=== PATIENT | male | born 1975 | race Caucasian/White ===

== ENCOUNTER 2022-07-17 02:22 | Observation (INO) ==
[2022-07-17] MEDS ORDERED: ONDANSETRON INJ 2 MG/ML 2 ML VIAL IV STA (02:36)
[2022-07-17] MEDS ORDERED: MoRPHine SULFATE 4 MG/ML 1 ML CARP\\VIAL IV STA ×2 (02:36→05:26)
[2022-07-17] MEDS ORDERED: SODIUM CHLORIDE 0.9% 1000ML 1,000 ML IV STA (02:36)
--- NOTE | 2022-07-17 02:43 | Emergency Department Note ---
History of Present Illness General Chief complaint: Abdominal Pain Stated complaint: ABDOMINAL PAIN Time Seen by Provider: 07/17/22 02:25 History of Present Illness Maximum Pain Intensity: 9 This 47-year-old male presents to the ER with spouse for severe epigastric pain that radiates to his back. Pain has gotten worse throughout the day. No history of similar symptoms in the past. Patient does not routinely see the doctor. Patient denies chest pain, dyspnea, fevers, vomiting, diarrhea, flulike illness. No prior surgeries. Patient denies hematemesis or black or tarry stool. No history of GI bleeding in the past. Home Medications Medication Instructions Recorded Confirmed Type No Known Home Medications 07/17/22 07/17/22 History Allergies Allergy/AdvReac Type Severity Reaction Status Date / Time No Known Allergies Allergy Mild Verified 07/17/22 02:54 Past Med/Surg History Medical History (Updated 07/17/22 @ 04:52 by Saniya Dale PA-C) No pertinent past medical history Family History Other No pertinent family history in first degree relatives Social History Smoking Status: Never smoker Preferred Language: Russian Feels Safe at Home: Yes Review of Systems A total of 10 systems reviewed and were otherwise negative Physical Exam Vital Signs Vital Signs - 24 hr 07/17/22 02:27 07/17/22 03:38 07/17/22 04:22 Temperature 37.2 C Temperature Source Oral Pulse Rate 64 56 L Respiratory Rate 18 20 Respiratory Effort / Characteristics Non-Labored Spontaneous Non-Labored Respiratory Depth Normal Respiratory Pattern Regular Blood Pressure 129/83 Blood Pressure Mean 98 Pulse Oximetry 99 100 Oxygen Delivery Method Room Air Room Air Sepsis Recent Fever Within 48 Hours No Sepsis New/Unexplained Change in Mental Status No Sepsis Action Taken by Nursing No Action Required 07/17/22 04:05 07/17/22 04:15 Temperature Temperature Source Pulse Rate 67 Respiratory Rate 17 Respiratory Effort / Characteristics Respiratory Depth Respiratory Pattern Blood Pressure 126/85 132/84 Blood Pressure Mean 98 100 Pulse Oximetry 93 Oxygen Delivery Method Sepsis Recent Fever Within 48 Hours Sepsis New/Unexplained Change in Mental Status Sepsis Action Taken by Nursing VITALS: Vitals are noted on the nurse's note and reviewed by myself. Vital signs stable. GENERAL: White male who appears in pain with spouse present, in no acute distress, nondiaphoretic, well-developed well-nourished. SKIN: The skin was without rashes, erythema, edema, or bruising. There is no tenting of the skin. Capillary reflex less than 2 seconds. HEAD: Normocephalic atraumatic. EARS: External auditory canals clear EYES: Pupils equal round and reactive to light and accommodation. Conjunctivae without injection, sclerae without icterus. Extraocular movements intact. NOSE: Patent, turbinates without inflammation or discharge. MOUTH: Mucous membranes moist. Pharynx without erythema or exudate. Uvula midline. Airway patent. Tongue does not deviate. NECK: Supple without nuchal rigidity. No lymphadenopathy. No thyromegaly. Cervical spine is nontender. No JVD. HEART: Regular rate and rhythm LUNGS: Clear to auscultation bilaterally without wheezes, rales or rhonchi. No retractions or accessory muscle use. ABDOMEN: Positive bowel sounds x 4. Normal tympanic percussion. Soft, tender epigastric region, without masses or organomegaly. Alvarenga sign negative. No guarding or rebound tenderness. No CVA tenderness Rectal exam: Brown stool guaiac negative. [employer] present. MUSCULOSKELETAL: No muscle atrophy, erythema, or edema noted. NEURO: Patient was alert and oriented to person place and time. Normal sensation to light and sharp touch. No focal neurological deficits. Course Administered Medications Discontinued Medications Sodium Chloride (Nss 1000ml) 1,000 mls @ 999 mls/hr IV .Q1H1M STA Stop: 07/17/22 03:36 Last Infusion: 07/17/22 04:24 Dose: 0 mls/hr Documented By: Admin: 07/17/22 03:09 Dose: 999 mls/hr Documented By: CURT Famotidine (Pepcid 20mg Iv Push) 20 mg in 5 mls @ 2.5 mls/min IV NOW STA Stop: 07/17/22 04:24 Last Admin: 07/17/22 04:34 Dose: 2.5 mls/min Documented By: HOMER Ioversol (Optiray 320 500ml) 113 ml IV ONCE ONE Stop: 07/17/22 03:41 Last Admin: 07/17/22 03:40 Dose: 113 ml Documented By: PAT Morphine Sulfate (Morphine Sulfate 4 Mg/Ml 1 Ml Carp\Vial) 4 mg IV NOW STA Stop: 07/17/22 02:37 Last Admin: 07/17/22 03:09 Dose: 4 mg Documented By: CURT Ondansetron HCl (Ondansetron Inj 2 Mg/Ml 2 Ml Vial) 4 mg IV NOW STA Stop: 07/17/22 02:37 Last Admin: 07/17/22 03:09 Dose: 4 mg Documented By: CURT Medical Decision Making Medical Records Attestation: I reviewed the patient's medical records. Home Medications Current Medication List: was personally reviewed by me Laboratory Data Attestation: I reviewed the patient's lab results. 07/17/22 02:49 07/17/22 02:49 Lab Results 07/17/22 07/17/22 07/17/22 Range/Units 02:49 02:49 02:57 WBC 6.63 (4.8-10.8) K/ul RBC 4.09 L (4.70-6.10) M/uL Hgb 13.1 L (14.0-18.0) g/dl POC Hgb 13.3 L (14.0-18.0) g/dl Hct 36.7 L (42.0-52.0) % POC Hct 39 L (42-52) % MCV 89.7 (80.0-100.0) fL MCH 32.0 (25.0-34.0) pg MCHC 35.7 (32.0-36.0) g/dL RDW Std Deviation 38.1 (36.4-46.3) fL RDW Coeff of Charleen 11.8 (11.5-14.5) % Plt Count 258 (130-400) K/uL MPV 9.8 (9.4-12.4) fL Immature Gran % (Auto) 0.0 % Neut % (Auto) 71.2 % Lymph % (Auto) 17.5 % Callahan % (Auto) 9.7 % Eos % (Auto) 0.8 % Baso % (Auto) 0.8 % Neut # (Auto) 4.73 (1.40-6.50) K/uL Lymph # (Auto) 1.16 L (1.2-3.4) K/uL Callahan # (Auto) 0.64 H (0.11-0.59) K/uL Eos # (Auto) 0.05 (0-0.50) K/uL Baso # (Auto) 0.05 (0-0.2) K/uL Immature Gran # (Auto) 0.00 L (0.01-0.20) K/uL POC Sodium 136 (135-144) mmol/L Sodium 136 (136-145) mmol/L POC Potassium 3.9 (3.3-5.0) mmol/L Potassium 3.9 (3.5-5.1) mmol/L POC Chloride 101 (101-112) mmol/L Chloride 101 (98-107) mmol/L Carbon Dioxide 25 (21-32) mmol/L POC Total CO2 25 (24-31) mmol/L Anion Gap 10 (3-11) POC Anion Gap 15.0 L (16-25) mmol/L POC BUN 8 (7-18) mg/dl BUN 9 (6-23) mg/dl Creatinine 0.84 (0.6-1.4) mg/dl POC Creatinine 0.8 (0.6-1.3) mg/dl Est Cr Clr Drug Dosing 113.5 ml/min Est GFR ( Amer) 121.7 ml/min Est GFR (Non-Af Amer) 105.0 ml/min BUN/Creatinine Ratio 10.7 (10-20) Glucose 91 (70-99(Fasting)) mg/dl POC Glucose (other) 93 (70-99) mg/dl Calcium 9.0 (8.5-10.1) mg/dl POC Ioniz Calcium Saba 1.11 L (1.12-1.32) mmol/l Total Bilirubin 0.7 (0.2-1.0) mg/dl AST 23 (13-39) U/L ALT 29 (7-52) U/L Alkaline Phosphatase 76 (34-104) U/L Troponin I High Sens 4.6 (0-20) pg/ml Total Protein 7.3 (6.0-8.3) gm/dl Albumin 4.5 (3.4-5.0) gm/dl Globulin 2.8 (2.5-4.0) gm/dl Albumin/Globulin Ratio 1.6 (0.9-2) Lipase 13 (11-82) U/L Imaging Data Attestation: I personally reviewed and interpreted this imaging study as follows: MDM Narrative Prior records/ancillary studies reviewed. Triage Nursing notes reviewed. Additional history obtained from family. The patient's history was concerning for epigastric pain. Differential diagnosis: Etiologies such as cardiac ischemia, gallbladder, pancreatitis, aortic dissection, pulmonary embolism, pneumonia, pneumothorax, musculoskeletal, infections, pericarditis, myocarditis, esophageal rupture, gastrointestinal, as well as others were entertained. Physical examination: As above. ER treatment provided: An order was placed for continuous cardiac monitoring. The monitor shows a rate of 60-100 with a sinus rhythm per my interpretation. Morphine, Zofran, IV fluids, Protonix, Pepcid On reassessment the patient felt better. Diagnostic interpretation by me: The electrocardiogram was negative for pathologic change. Order for chest pain EKG: Normal sinus, normal intervals, left axis deviation, no acute ST-T wave changes. Impression normal sinus rhythm with a left axis deviation interpreted by myself I think arrhythmia is unlikely. EKG shows normal sinus rhythm with no interval abnormalities such as QT prolongation or WPW. There are no findings to suggest Brugada syndrome. Cardiac monitoring in the emergency department reveals no tachycardic or bradycardic dysrhythmia. Hypertrophic cardiomyopathy was considered but there are no clear historical elements pointing toward this. EKG is not suggestive. The QRS voltage is not extremely large and there are no suggestive Q waves. The labs Independently Interpreted by myself revealed negative troponin. Negative Hemoccult Mild anemia, stable creatinine Imaging studies: Chest x-ray with no acute consolidation, pneumothorax or free air per my interpretation CTA CHEST: No pulmonary embolus. No aortic aneurysm or dissection. The lungs are clear. Heart size is normal. No pathologically enlarged lymph nodes. No fracture. CTA ABDOMEN & PELVIS W/WO Contrast: No significant stenosis, occlusion, aneurysm or dissection. Question a small amount of active GI bleed of the small bowel in the pelvis axial series 9 images 322 through 333. There is a possible second focus in the right lower quadrant axial series 9 images 251 through 254. Clinical correlation is recommended. The solid organs are within normal limits. No bowel obstruction. No fracture. Normal appendix. Radiologist: Salma Argueta MD Study ready at 03:39 and initial results transmitted at 04:30 HEART SCORE: Hx: high/mod/low suspicion: 0 ECG: ST depression/nonspecific changes/normal: 0 Age: Greater than 65/45-64/less than 45: 1 Risk factors: (Hypertension, hyperlipidemia, diabetes, coronary disease, tobacco use, cocaine use): 0 Troponin: Greater than 2 times normal limits/1-2 times normal limits/normal: 0 Total: 1 Consultation: A consultation was placed with the hospitalist. The case was discussed and diagnostics were reviewed. The patient was evaluated in the ER for further treatment. Exam and history seem consistent with acute abdominal pain with concerns for possible acute GI bleed. Patient was not vomiting blood and was negative for Hemoccult. No history of GI bleeding in the past. Labs and diagnostics are independently interpreted by myself. Medicine was consulted and the case was discussed. Patient will be admitted to the medical service. Stable H&H. Patient was hemodynamically stable. By the evaluation outlined above emergent etiologies such as cardiac ischemia, aortic dissection, pulmonary embolism, pneumonia, pneumothorax, infections, pericarditis, myocarditis, as well as others were deemed relatively unlikely. The pt informed about the findings as listed above. All questions were answered and pleased with the treatment. The chart was completed utilizing [employer] voice recognition software. Grammatical errors, random word insertions, pronoun errors, and incomplete sentences are an occassional consequence of this system due to software limitations, ambient noise, and hardware issues. Any formal questions or concerns about the content, text, or information contained within the body of this dictation should be directly addressed to the physician gift shop assistant for clarification. Impression & Plan Abdominal pain, acute, epigastric Discharge Plan Visit Data Chief Complaint: Abdominal Pain Stated Complaint: ABDOMINAL PAIN ED Provider: Gustavo Lorenzana ED Midlevel Provider: Saniya Dale Discharge Problem: Abdominal pain, acute, epigastric Patient Disposition: Admitted As Inpatient Condition: Good Forms Stand Alone Forms: [employer] Prescriptions Prescriptions: No Action No Known Home Medications Referrals Referrals: PCP,NO [Primary Care Provider] -
[2022-07-17 02:58] LABS: Basophils # (auto) 0.05 K/uL (0-0.2); Basophils % (auto) 0.8 %; Eosinophils # (auto) 0.05 K/uL (0-0.50); Eosinophils % (auto) 0.8 %; Hematocrit (blood only) 36.7 % (42.0-52.0); Hemoglobin 13.1 g/dl (14.0-18.0); Lymphocytes # (auto) 1.16 K/uL (1.2-3.4); Lymphocytes % (auto) 17.5 %; Mean Corpuscular Hgb Conc 35.7 g/dL (32.0-36.0); Mean Corpuscular Volume 89.7 fL (80.0-100.0); Mean Platelet Volume 9.8 fL (9.4-12.4); Monocytes # (auto) 0.64 K/uL (0.11-0.59); Monocytes % (auto) 9.7 %; Neutrophils # (auto) 4.73 K/uL (1.40-6.50); Neutrophils % (auto) 71.2 %; Platelet Count 258 K/uL (130-400); RDW Coefficient of Variation 11.8 % (11.5-14.5); RDW Standard Deviation 38.1 fL (36.4-46.3); Red Blood Count 4.09 M/uL (4.70-6.10); White Blood Count 6.63 K/ul (4.8-10.8)
[2022-07-17 03:11] LABS: iSTAT Creatinine 0.8 mg/dl (0.6-1.3); iSTAT Hemoglobin 13.3 g/dl (14.0-18.0); iSTAT Ionized Calcium 1.11 mmol/l (1.12-1.32); iSTAT Potassium 3.9 mmol/L (3.3-5.0)
[2022-07-17 03:23] LABS: Albumin Globulin Ratio 1.6 (0.9-2); Albumin Level 4.5 gm/dl (3.4-5.0); BUN Creatinine Ratio 10.7 (10-20); Bilirubin,Total 0.7 mg/dl (0.2-1.0); Creatinine Clr Calc Pharmacy 113.5 ml/min; Est GFR (African American) 121.7 ml/min; Globulin 2.8 gm/dl (2.5-4.0); Potassium 3.9 mmol/L (3.5-5.1); Total Protein 7.3 gm/dl (6.0-8.3)
[2022-07-17 03:30] LABS: Troponin I High Sensitivity 4.6 pg/ml (0-20)
[2022-07-17] MEDS ORDERED: OPTIRAY 320 500ml IV ONE (03:40)
[2022-07-17] MEDS ORDERED: FAMOTIDINE 20MG IV PUSH 20 MG/5 ML SYR IV STA (04:23)
[2022-07-17] MEDS ORDERED: PANTOprazole 80 MG in DEXTROSE 5% 100 ML IV STA (04:31)
--- NOTE | 2022-07-17 05:06 | History & Physical Report ---
Date of Service July 17, 2022 Assessment & Plan (1) Abdominal pain, acute, epigastric: Plan: Possible GI bleed on initial CT read Patient predisposed by alcohol abuse. Patient currently hemodynamically stable OBS Medical telemetry IV PPI until UGIB ruled out Follow official CT abdomen pelvis result GI consult if GI bleed on CT read N.p.o. Serial H&H, transfuse PRBC if hemoglobin less than 7 and or for symptomatic anemia DT precautions, LAKESHA S if with signs of alcohol withdrawal DVT prophylaxis. SCDs Re: Possible GI bleed Full code Patient fiance requesting updates from providers. Ms. Madina Rich, contact #[phone]. Text document was generated using [employer] voice recognition software. It may contain grammatical or spelling errors. Kindly contact undersigned for clarification of any documentation item in question. History of Present Illness Chief Complaint: Abdominal pain Primary Care Provider: NO PCP History obtained from patient, family, and records. Medical history significant for chronic anemia (baseline hemoglobin of 13 ), alcohol abuse. Patient woke up yesterday morning with sharp epigastric pain going to the back. Abdominal pain getting worse throughout the day. Somewhat worse in the supine position. Bilious emesis without black/bloody stools. No fever, no chills. No chest pain, no SOB. Patient denies inordinate OTC NSAID intake. Transient episodes for some time now which patient attributes to heavy food and EtOH intake. Patient consulted ER for evaluation. IV Protonix and famotidine administered for possible GI bleed on initial CT read. Medical History as above Surgical History : Right forearm surgery Family History : Hypertension Personal/Social history : Non-smoker, alcohol abuse, [employer] employment Allergies Allergy/AdvReac Type Severity Reaction Status Date / Time No Known Allergies Allergy Mild Verified 07/17/22 02:54 Home Medications Medication Instructions Recorded Confirmed Type No Known Home Medications 07/17/22 07/17/22 History Past Med/Surg History Medical History No pertinent past medical history Family History Other No pertinent family history in first degree relatives Social History Smoking Status: Never smoker Preferred Language: Tanzanian Feels Safe at Home: Yes Review of Systems Review of Systems: As per HPI, all other systems reviewed and negative Physical Exam 2 Physical Exam: GENERAL: Comfortable, pleasant, no respiratory distress SKIN: Pallor, warm HEENT: Pale palpebral conjunctivae, no ptosis, dry buccal mucosa NECK : Supple, no tenderness CHEST : CTA, no tenderness HEART : RRR, no obvious murmurs ABDOMEN: Some distention, epigastric tenderness EXTREMITIES : No LE swelling/tenderness, no other conspicuous deformities noted NEUROLOGIC : Coherent, no facial asymmetry, no other gross focality Results & Data Results & Data ([facility]) Vital Signs (Past 12 Hours) Vital Signs Temp Pulse Resp BP Pulse Ox O2 Del Method 07/17/22 04:15 132/84 07/17/22 04:05 67 17 126/85 93 07/17/22 03:38 56 L 20 100 Room Air 07/17/22 02:27 37.2 C 64 18 129/83 99 Room Air Laboratory Results Laboratory Results WBC 6.63 K/ul (4.8-10.8) 07/17/22 02:49 RBC 4.09 M/uL (4.70-6.10) L 07/17/22 02:49 Hgb 13.1 g/dl (14.0-18.0) L 07/17/22 02:49 POC Hgb 13.3 g/dl (14.0-18.0) L 07/17/22 02:57 Hct 36.7 % (42.0-52.0) L 07/17/22 02:49 POC Hct 39 % (42-52) L 07/17/22 02:57 MCV 89.7 fL (80.0-100.0) 07/17/22 02:49 MCH 32.0 pg (25.0-34.0) 07/17/22 02:49 MCHC 35.7 g/dL (32.0-36.0) 07/17/22 02:49 RDW Std Deviation 38.1 fL (36.4-46.3) 07/17/22 02:49 RDW Coeff of Charleen 11.8 % (11.5-14.5) 07/17/22 02:49 Plt Count 258 K/uL (130-400) 07/17/22 02:49 MPV 9.8 fL (9.4-12.4) 07/17/22 02:49 Immature Gran % (Auto) 0.0 % 07/17/22 02:49 Neut % (Auto) 71.2 % 07/17/22 02:49 Lymph % (Auto) 17.5 % 07/17/22 02:49 Forrest % (Auto) 9.7 % 07/17/22 02:49 Eos % (Auto) 0.8 % 07/17/22 02:49 Baso % (Auto) 0.8 % 07/17/22 02:49 Neut # (Auto) 4.73 K/uL (1.40-6.50) 07/17/22 02:49 Lymph # (Auto) 1.16 K/uL (1.2-3.4) L 07/17/22 02:49 Forrest # (Auto) 0.64 K/uL (0.11-0.59) H 07/17/22 02:49 Eos # (Auto) 0.05 K/uL (0-0.50) 07/17/22 02:49 Baso # (Auto) 0.05 K/uL (0-0.2) 07/17/22 02:49 Immature Gran # (Auto) 0.00 K/uL (0.01-0.20) L 07/17/22 02:49 POC Sodium 136 mmol/L (135-144) 07/17/22 02:57 Sodium 136 mmol/L (136-145) 07/17/22 02:49 POC Potassium 3.9 mmol/L (3.3-5.0) 07/17/22 02:57 Potassium 3.9 mmol/L (3.5-5.1) 07/17/22 02:49 POC Chloride 101 mmol/L (101-112) 07/17/22 02:57 Chloride 101 mmol/L (98-107) 07/17/22 02:49 Carbon Dioxide 25 mmol/L (21-32) 07/17/22 02:49 POC Total CO2 25 mmol/L (24-31) 07/17/22 02:57 Anion Gap 10 (3-11) 07/17/22 02:49 POC Anion Gap 15.0 mmol/L (16-25) L 07/17/22 02:57 POC BUN 8 mg/dl (7-18) 07/17/22 02:57 BUN 9 mg/dl (6-23) 07/17/22 02:49 Creatinine 0.84 mg/dl (0.6-1.4) 07/17/22 02:49 POC Creatinine 0.8 mg/dl (0.6-1.3) 07/17/22 02:57 Est Cr Clr Drug Dosing 113.5 ml/min 07/17/22 02:49 Est GFR ( Amer) 121.7 ml/min 07/17/22 02:49 Est GFR (Non-Af Amer) 105.0 ml/min 07/17/22 02:49 BUN/Creatinine Ratio 10.7 (10-20) 07/17/22 02:49 Glucose 91 mg/dl (70-99(Fasting)) 07/17/22 02:49 POC Glucose (other) 93 mg/dl (70-99) 07/17/22 02:57 Calcium 9.0 mg/dl (8.5-10.1) 07/17/22 02:49 POC Ioniz Calcium Saba 1.11 mmol/l (1.12-1.32) L 07/17/22 02:57 Total Bilirubin 0.7 mg/dl (0.2-1.0) 07/17/22 02:49 AST 23 U/L (13-39) 07/17/22 02:49 ALT 29 U/L (7-52) 07/17/22 02:49 Alkaline Phosphatase 76 U/L (34-104) 07/17/22 02:49 Troponin I High Sens 4.6 pg/ml (0-20) 07/17/22 02:49 Total Protein 7.3 gm/dl (6.0-8.3) 07/17/22 02:49 Albumin 4.5 gm/dl (3.4-5.0) 07/17/22 02:49 Globulin 2.8 gm/dl (2.5-4.0) 07/17/22 02:49 Albumin/Globulin Ratio 1.6 (0.9-2) 07/17/22 02:49 Lipase 13 U/L (11-82) 07/17/22 02:49 SARS-CoV-2, RNA, NAAT NEGATIVE (NEGATIVE) 07/17/22 04:41 Diagnostic Findings CTA CHEST initial read: No pulmonary embolus. No aortic aneurysm or dissection. The lungs are clear. Heart size is normal. No pathologically enlarged lymph nodes. No fracture. CTA ABDOMEN & PELVIS W/WO Contrast initial read: : No significant stenosis, occlusion, aneurysm or dissection. Question a small amount of active GI bleed of the small bowel in the pelvis axial series 9 images 322 through 333. There is a possible second focus in the right lower quadrant axial series 9 images 251 through 254. Clinical correlation is recommended. The solid organs are within normal limits. No bowel obstruction. No fracture. Normal appendix EKG as per my interpretation : Rate 60, LAD, LAFB, no ischemia
[2022-07-17] MEDS ORDERED: LACTATED RINGER'S 1,000 ML IV STA (05:12)
[2022-07-17] MEDS ORDERED: LORazepam 2 MG/1 ML VIAL IV PRN (05:35)
[2022-07-17] MEDS ORDERED: MoRPHine SULFATE 4 MG/ML 1 ML CARP\\VIAL IV PRN (05:35)
[2022-07-17] MEDS ORDERED: oxyCODONE HCL IR 5 MG TAB (IMMEDIATE RELEASE) PO PRN ×2 (05:35→15:48)
[2022-07-17] MEDS ORDERED: MULTI-VITAMIN INFUSION 10 ML, THIAMINE HCL 100 MG, FOLIC ACID 1 MG in SODIUM CHLORIDE 0... IV STA (05:39)
[2022-07-17] MEDS: MoRPHine SULFATE 4 MG/ML 1 ML CARP\\VIAL ONE ×2 (05:40→05:41)
[2022-07-17] MEDS: PANTOprazole 40 MG in DEXTROSE 5% 100 ML IV SCH ×2 (05:56→11:03)
[2022-07-17] MEDS ORDERED: ACETAMINOPHEN 325 MG TAB PO PRN (06:32)
--- NOTE | 2022-07-17 07:03 | XRay Report ---
XR chest 1V portable HISTORY: Chest pain, nonspecific COMPARISON: None. FINDINGS: The lungs are clear. Cardiac silhouette is normal in size. No pleural effusions. No pneumot horax. IMPRESSION: No acute process. ACT 112: Negative or not required by law. Electronically signed by: Lew Mandel M.D. 07/17/2022 7:01 AM
--- NOTE | 2022-07-17 07:33 | CT Scan Report ---
CHEST CTA for AORTIC DISSECTION CT DOSE: 947.19 mGy.cm HISTORY: severe epigastric pain to back TECHNIQUE: Multiaxial CT images of the chest were performed both before and after the intravenous adm inistration of contrast to evaluate the aorta. Maximal intensity projection images were also obtained . A dose lowering technique was utilized adhering to the principles of ALARA. COMPARISON STUDY: None. FINDINGS: Noncontrast imaging through the chest shows no evidence for an intramural hematoma within t he thoracic aorta. The ascending thoracic aorta measures up to 3.8 cm in diameter. No evidence for an aortic dissection. The heart is normal in size. The central pulmonary arteries are patent. Normal th yroid gland. No mediastinal or hilar lymphadenopathy. No pleural or pericardial effusions. Normal esvin iber esophagus. No acute fractures identified. No pneumothorax. The central airways are patent. The l ungs are clear. IMPRESSION: No evidence for an aortic dissection. ACT 112: Negative or not required by law. Electronically signed by: Lew Mandel M.D. 07/17/2022 7:30 AM
--- NOTE | 2022-07-17 08:31 | CT Scan Report ---
CT OF THE ABDOMEN AND PELVIS WITHOUT CONTRAST AND CT ANGIOGRAPHY OF THE ABDOMEN AND PELVIS CLINICAL HISTORY: Severe epigastric and back pain. COMPARISON STUDY: CT of the abdomen and pelvis March 24, 2019. TECHNIQUE: Unenhanced and arterial phase imaging of the abdomen and pelvis was performed. Intravenous injection 113 cc of Optiray 320 IV was uneventful. Sagittal and coronal reconstructions were viewed as well as maximal intensity projections on an independent 3-D workstation. Automated exposure contro l was utilized for the study. A dose lowering technique was utilized adhering to the principles of A DARLINE. FINDINGS: Please note that the chest CT will be reported separately. No pneumatosis, free air or port al venous gas is present. The caliber of the abdominal aorta is normal. The major branch vessels are patent. There is no dissection or aneurysm within the abdomen or the pelvis. No liver lesions are ethan ntified on arterial phase exam. There is no biliary or pancreatic ductal dilatation. Spleen, adrenal glands, kidneys and pancreas are normal. No peripancreatic or pericholecystic infiltration is present . There is no evidence for a bowel obstruction. The appendix is normal. No evidence for intraluminal GI bleed on this exam. A few hyperdense intraluminal foci within the small bowel are similar on pre a nd postcontrast portions of this exam. Therefore, this represents intraluminal contents rather than G I bleed. Note is made of clustered enlarged ileocolic lymph nodes. Index enhancing node within the ri t lower quadrant on image 270 measures 1.7 x 1.3 cm. An adjacent hypoenhancing node measures 2 x 1. 2 cm. This may be necrotic. Equivocal small bowel wall thickening with enhancement within the mid to distal ileum on axial image 298 is noted. This could potentially represent the primary lesion. No add itional abnormalities are identified on this exam. There are no urinary calculi. No hydronephrosis. IMPRESSION: 1. Normal caliber abdominal aorta. No dissection. No aneurysm. 2. No acute process within the abdomen or pelvis. No evidence for active GI bleed by CT. 3. Clustered mildly enlarged ileocolic lymph nodes, one of which may be necrotic. Although nonspecifi c, these are suspicious for a neoplastic process. Rosalio spread of carcinoid tumor is within the diffe rential with the possible primary tumor within the mid to distal ileum, as described above. Nonemerge nt surgical consultation is recommended. This finding will be called/faxed to ordering provider at ti me of dictation. ACT 112: Positive. There are findings on this exam that require communication between the performing entity and the patient following Patient Test Result Information Act ([place] Act 112) guidelines. Electronically signed by: Lorenzo Franco M.D. 07/17/2022 8:29 AM
--- NOTE | 2022-07-17 08:43 | Gastrointestinal Consultation ---
Date of Consultation July 17, 2022 Assessment & Plan (1) Abdominal pain, acute, epigastric: Most likely has gastroenteritis with no focal symptoms. He does have an abnormal CT scan that which is unlikely to be reached from any conventional endoscopy and will require enteroscopy not available at this hospital. Given his lymph nodes and this abnormality, surgical consultation should take place either as an inpatient or with surgical oncology as an outpatient for potential resection as well as evaluation of these pathologic lymph nodes. Continue supportive care call with any questions. History of Present Illness Reason for Consultation: Epigastric pain concern for GI bleed on CT Attending Physician: Nely De Anda DO History of Present Illness This is a 47-year-old gentleman who has no past medical history who has had 2 days of mild vague abdominal discomfort as well as nausea and nonbilious vomiting with soft nonbloody stools. Due to ongoing symptoms as well as continued discomfort he presented to the emergency room. He underwent CT angiography that was read by the [facility] radiologist who said that there may be some active GI bleeding in the distal small bowel. However this was evident on the noncontrast as well as the contrasted scan therefore not diagnostic of an ongoing bleed. He has no evidence of melena, hematochezia, hematemesis. Blood count and vital signs are normal. He does have an area of mesenteric lymph nodes that is noted to be concerning with an area of enhancement in the distal small bowel, ironically not contiguous with the concerning features on CT, that may be a primary carcinoid tumor. Other than being tired right now he is asymptomatic. Allergies Allergy/AdvReac Type Severity Reaction Status Date / Time No Known Allergies Allergy Mild Verified 07/17/22 02:54 Home Medications Medication Instructions Recorded Confirmed Type No Known Home Medications 07/17/22 07/17/22 History Patient History Medical History No pertinent past medical history Family History Other No pertinent family history in first degree relatives Social History Smoking Status: Never smoker Preferred Language: Maltese Feels Safe at Home: Yes Review of Systems Review of Systems: 10 systems negative except for stated as above Physical Exam Constitutional: WD/WN, vitals as above Cardiovascular: RRR, no murmur, no edema Gastrointestinal (Abdomen): normal bowel sounds, soft, nontender, no hepatosplenomegaly Results & Data ([facility]) Vital Signs (Past 12 Hours) Vital Signs Temp Pulse Pulse Resp BP BP Pulse Ox 07/17/22 07:30 57 L 13 121/79 94 07/17/22 07:15 58 L 13 123/74 95 07/17/22 07:00 60 16 135/83 96 07/17/22 06:45 59 L 14 130/85 94 07/17/22 06:00 63 16 126/84 95 07/17/22 05:00 61 19 135/86 96 07/17/22 04:15 132/84 07/17/22 04:05 67 17 126/85 93 07/17/22 03:38 56 L 20 100 07/17/22 02:27 37.2 C 64 18 129/83 99 O2 Del Method 07/17/22 07:30 Room Air 07/17/22 07:15 Room Air 07/17/22 07:00 Room Air 07/17/22 06:45 Room Air 07/17/22 06:00 Room Air 07/17/22 05:00 Room Air 07/17/22 04:15 07/17/22 04:05 07/17/22 03:38 Room Air 07/17/22 02:27 Room Air
[2022-07-17 08:53] LABS: Hematocrit (blood only) 34.4 % (42.0-52.0); Hemoglobin 11.9 g/dl (14.0-18.0)
[2022-07-17 14:19] LABS: Hematocrit (blood only) 34.6 % (42.0-52.0); Hemoglobin 11.9 g/dl (14.0-18.0)
--- NOTE | 2022-07-17 17:11 | Hospitalist Progress Note ---
Date of Service July 17, 2022 Assessment & Plan (1) Abdominal pain, acute, epigastric: Plan: Doesn't appear to have any active bleeding at this time. Will dc protonix drip for now. There was some alcohol and fatty food that predated his pain, which is now impro sarbjit. Lipase was negative and CT didn't reveal any evidence of pancreatic inflammation. Per GI the area in question is not easily reachable by endoscopy, and it would be better to try and biopsy the affected lymph nodes for a diagnosis. Will ask general surgery to see if this is something they would be able to perform. If not, we may be able to discharge him and send him to a specialist in the area for definitive diagnosis. DVT proph: SCDs, ambulation Full Code Dispo-to home if improved tomorrow as long as he is tolerating food reliably and we have a plan for diagnostic workup of his small bowel abnormalities seen on CT scan. Nely De Anda DO [facility] Hospitalist (2) Abnormal CT of the abdomen: Admission and Anticipated Discharge Date Admission Date: July 17, 2022 Subjective 47-year-old man admitted for acute epigastric pain. No vomiting today and patient reports resolution of epigastric pain He has been n.p.o. today and feels that he has more hydrated. He continues on a PPI drip after CT findings incidentally noted acute bleeding, which this reading was later corrected. He has had no evidence of ongoing hemodynamic instability and no blood per rectum or hematemesis to suggest GI bleeding. We discussed his CT findings and he denies any issues with headaches, abdominal pain, sweating, flushing, weight loss or other family history of carcinoid in the past. He is feeling like he could tolerate clear liquids and diet was advanced Denies any fevers is at bedside and reports that she was also ill with gastroenteritis symptoms 1 day prior to him becoming ill, although she has IBS so it was hard to tell if this was an infection. Review of Systems Review of Systems: All systems reviewed negative except as indicated above. Physical Exam Physical Exam: CONSTITUTIONAL: WNWD, vitals as above, generally well- appearing, NAD EYES: normal conjunctivae, no scleral icterus ENT: external ear and nose normal, MMM NECK: trachea midline RESPIRATORY: clear to auscultation bilaterally, no crackles, rales or wheezes, normal respiratory effort CARDIOVASCULAR: regular rate and rhythm, S1 and 2 heard without murmurs, gallops or rubs, no JVD, no peripheral edema CHEST: inspection of chest was normal GASTROINTESTINAL: soft, nontender, ND, no guarding MUSCULOSKELETAL: strength 5/5 throughout, head is normocephalic and atraumatic SKIN: warm and dry NEUROLOGIC: CN 2-12 grossly intact, no sensory deficit, normal cognition, normal speech, no tremor PSYCHIATRIC: alert cooperative and oriented to person, place and time. Results & Data Results & Data ([facility]) Vital Signs (Past 12 Hours) Vital Signs Temp Pulse Pulse Resp BP BP Pulse Ox 07/17/22 16:43 36.5 C 65 18 146/88 H 98 07/17/22 16:00 56 L 20 115/83 97 07/17/22 11:56 52 L 18 95 07/17/22 11:00 55 L 18 95 07/17/22 11:00 07/17/22 10:00 66 13 128/82 97 07/17/22 09:00 53 L 15 109/69 96 07/17/22 08:30 57 L 16 125/82 97 07/17/22 08:00 57 L 12 126/80 95 07/17/22 07:30 57 L 13 121/79 94 07/17/22 07:15 58 L 13 123/74 95 07/17/22 07:00 60 16 135/83 96 07/17/22 06:45 59 L 14 130/85 94 07/17/22 06:00 63 16 126/84 95 Pulse Ox O2 Del Method O2 Del Method 07/17/22 16:43 Room Air 07/17/22 16:00 Room Air 07/17/22 11:56 Room Air 07/17/22 11:00 Room Air 07/17/22 11:00 95 Room Air 07/17/22 10:00 Room Air 07/17/22 09:00 Room Air 07/17/22 08:30 Room Air 07/17/22 08:00 Room Air 07/17/22 07:30 Room Air 07/17/22 07:15 Room Air 07/17/22 07:00 Room Air 07/17/22 06:45 Room Air 07/17/22 06:00 Room Air Laboratory Results Short CBC 02/12/23 02/12/23 02/12/23 Range/Units 02:49 08:15 13:56 WBC 6.63 (4.8-10.8) K/ul Hgb 13.1 L 11.9 L 11.9 L (14.0-18.0) g/dl Hct 36.7 L 34.4 L 34.6 L (42.0-52.0) % Plt Count 258 (130-400) K/uL BMP 07/17/22 02:49 Sodium 136 Potassium 3.9 Chloride 101 Carbon Dioxide 25 BUN 9 Creatinine 0.84 Glucose 91 Calcium 9.0 Liver Function 07/17/22 Range/Units 02:49 Total Bilirubin 0.7 (0.2-1.0) mg/dl AST 23 (13-39) U/L ALT 29 (7-52) U/L Alkaline Phosphatase 76 (34-104) U/L Albumin 4.5 (3.4-5.0) gm/dl Diagnostic Findings Abdomen/Pelvis CTA 07/17/22 02:36 CT OF THE ABDOMEN AND PELVIS WITHOUT CONTRAST AND CT ANGIOGRAPHY OF THE ABDOMEN AND PELVIS CLINICAL HISTORY: Severe epigastric and back pain. COMPARISON STUDY: CT of the abdomen and pelvis March 24, 2019. TECHNIQUE: Unenhanced and arterial phase imaging of the abdomen and pelvis was performed. Intravenous injection 113 cc of Optiray 320 IV was uneventful. Sagittal and coronal reconstructions were viewed as well as maximal intensity projections on an independent 3-D workstation. Automated exposure control was utilized for the study. A dose lowering technique was utilized adhering to the principles of ALARA. FINDINGS: Please note that the chest CT will be reported separately. No pneumatosis, free air or portal venous gas is present. The caliber of the abdominal aorta is normal. The major branch vessels are patent. There is no dissection or aneurysm within the abdomen or the pelvis. No liver lesions are identified on arterial phase exam. There is no biliary or pancreatic ductal dilatation. Spleen, adrenal glands, kidneys and pancreas are normal. No peripancreatic or pericholecystic infiltration is present. There is no evidence for a bowel obstruction. The appendix is normal. No evidence for intraluminal GI bleed on this exam. A few hyperdense intraluminal foci within the small bowel are similar on pre and postcontrast portions of this exam. Therefore, this represents intraluminal contents rather than GI bleed. Note is made of clustered enlarged ileocolic lymph nodes. Index enhancing node within the right lower quadrant on image 270 measures 1.7 x 1.3 cm. An adjacent hypoenhancing node measures 2 x 1.2 cm. This may be necrotic. Equivocal small bowel wall thickening with enhancement within the mid to distal ileum on axial image 298 is noted. This could potentially represent the primary lesion. No additional abnormalities are identified on this exam. There are no urinary calculi. No hydronephrosis. IMPRESSION: 1. Normal caliber abdominal aorta. No dissection. No aneurysm. 2. No acute process within the abdomen or pelvis. No evidence for active GI bleed by CT. 3. Clustered mildly enlarged ileocolic lymph nodes, one of which may be necrotic. Although nonspecific, these are suspicious for a neoplastic process. Rosalio spread of carcinoid tumor is within the differential with the possible primary tumor within the mid to distal ileum, as described above. Nonemergent surgical consultation is recommended. This finding will be called/faxed to ordering provider at time of dictation. ACT 112: Positive. There are findings on this exam that require communication between the performing entity and the patient following Patient Test Result Information Act ([place] Act 112) guidelines. Electronically signed by: Lorenzo Franco M.D. 07/17/2022 8:29 AM Chest CTA 07/17/22 02:36 CHEST CTA for AORTIC DISSECTION CT DOSE: 947.19 mGy.cm HISTORY: severe epigastric pain to back TECHNIQUE: Multiaxial CT images of the chest were performed both before and after the intravenous administration of contrast to evaluate the aorta. Maximal intensity projection images were also obtained. A dose lowering technique was utilized adhering to the principles of ALARA. COMPARISON STUDY: None. FINDINGS: Noncontrast imaging through the chest shows no evidence for an intramural hematoma within the thoracic aorta. The ascending thoracic aorta measures up to 3.8 cm in diameter. No evidence for an aortic dissection. The heart is normal in size. The central pulmonary arteries are patent. Normal thyroid gland. No mediastinal or hilar lymphadenopathy. No pleural or pericardial effusions. Normal caliber esophagus. No acute fractures identified. No pneumothorax. The central airways are patent. The lungs are clear. IMPRESSION: No evidence for an aortic dissection. ACT 112: Negative or not required by law. Electronically signed by: Lew Mandel M.D. 07/17/2022 7:30 AM Chest X-Ray 07/17/22 02:36 XR chest 1V portable HISTORY: Chest pain, nonspecific COMPARISON: None. FINDINGS: The lungs are clear. Cardiac silhouette is normal in size. No pleural effusions. No pneumothorax. IMPRESSION: No acute process. ACT 112: Negative or not required by law. Electronically signed by: Lew Mandel M.D. 07/17/2022 7:01 AM Medications Administered Current Inpatient Medications Acetaminophen (Acetaminophen 325 Mg Tab) 650 mg PO Q4H PRN PRN Reason: Pain or Fever Stop: 08/16/22 06:31 Folic Acid (Folic Acid 1 Mg Tab) 1 mg PO QAM [facility] Stop: 08/17/22 08:59 Pantoprazole Sodium 40 mg/ (Dextrose) 100 mls @ 20 mls/hr IV Q5H [facility] Stop: 08/16/22 05:59 Last Infusion: 07/17/22 16:09 Dose: Infused Lorazepam (Lorazepam 2 Mg/1 Ml Vial) 0.5 mg IV Q4H PRN PRN Reason: Anxiety Stop: 08/16/22 05:34 Morphine Sulfate (Morphine Sulfate 4 Mg/Ml 1 Ml Carp\Vial) 4 mg IV Q4H PRN PRN Reason: Pain Stop: 07/31/22 05:34 Multivitamins (Multivitamin Tab) [facility] [place] Stop: 08/17/22 08:59 Oxycodone HCl (Oxycodone Hcl Ir 5 Mg Tab (Immediate Release)) 5 - 10 mg PO Q6H PRN PRN Reason: Pain Stop: 07/31/22 05:34 Thiamine HCl (Thiamine Hcl 100 Mg Tab) 100 mg PO QAM [facility] Stop: 08/17/22 08:59
[2022-07-17 22:54] LABS: Appearance Urine Clear (Clear); Bilirubin Urine Negative (Negative); Blood Urine Negative (Negative); Color Urine Yellow; Glucose Urine UA Negative (Negative); Ketones Urine Trace (Negative); Leukocyte Esterase Urine Negative (Negative); Nitrite Urine Negative (Negative); Protein Urine Negative (Negative); Specific Gravity Urine 1.004 (1.000-1.030); Urobilinogen Urine Negative (Negative); pH Urine 6.5 (4.5-7.5)
--- NOTE | 2022-07-18 06:04 | Electrocardiogram Report ---
Test Reason : Blood Pressure : / mmHG Vent. Rate : 061 BPM Atrial Rate : 061 BPM P-R Int : 140 ms QRS Dur : 076 ms QT Int : 414 ms P-R-T Axes : 061 -30 030 degrees QTc Int : 416 ms Normal sinus rhythm Left axis deviation Abnormal ECG No previous ECGs available Confirmed by Salvador Sawyer ([id number]) on 07/18/2022 6:04:36 AM Referred By: REFERRED SELF Confirmed By:Salvador Sawyer
[2022-07-18 06:29] LABS: Basophils # (auto) 0.04 K/uL (0-0.2); Basophils % (auto) 0.7 %; Eosinophils # (auto) 0.17 K/uL (0-0.50); Eosinophils % (auto) 2.9 %; Hematocrit (blood only) 33.9 % (42.0-52.0); Hemoglobin 11.7 g/dl (14.0-18.0); Immature Granulocytes # (auto) 0.01 K/uL (0.01-0.20); Immature Granulocytes % (auto) 0.2 %; Lymphocytes # (auto) 1.45 K/uL (1.2-3.4); Lymphocytes % (auto) 24.5 %; Mean Corpuscular Hemoglobin 31.4 pg (25.0-34.0); Mean Corpuscular Hgb Conc 34.5 g/dL (32.0-36.0); Mean Corpuscular Volume 90.9 fL (80.0-100.0); Mean Platelet Volume 10.5 fL (9.4-12.4); Monocytes # (auto) 0.76 K/uL (0.11-0.59); Monocytes % (auto) 12.9 %; Neutrophils # (auto) 3.48 K/uL (1.40-6.50); Neutrophils % (auto) 58.8 %; Platelet Count 224 K/uL (130-400); RDW Coefficient of Variation 11.9 % (11.5-14.5); RDW Standard Deviation 39.5 fL (36.4-46.3); Red Blood Count 3.73 M/uL (4.70-6.10); White Blood Count 5.91 K/ul (4.8-10.8)
[2022-07-18 06:42] LABS: BUN Creatinine Ratio 8.1 (10-20); Calcium 8.7 mg/dl (8.5-10.1); Creatinine Clr Calc Pharmacy 110.8 ml/min; Est GFR (African American) 120.5 ml/min; Potassium 3.9 mmol/L (3.5-5.1)
[2022-07-18] MEDS ORDERED: FOLIC ACID 1 MG TAB PO SCH (09:00)
[2022-07-18] MEDS ORDERED: MULTIVITAMIN TAB PO SCH (09:00)
[2022-07-18] MEDS ORDERED: THIAMINE HCL 100 MG TAB PO SCH (09:00)
--- NOTE | 2022-07-18 11:57 | Discharge Summary ---
Discharge Summary Date of Service July 18, 2022 Notes For Next Care Provider abnormal CT scan with thickening of small bowel and associated necrotic LNs suspicious for carcinoid. Please ensure close followup with Surgical Oncology -Dr. Florentino- at [facility] in [place], [place] Medication Changes From Visit see med rec Admission HPI Per Admitting Provider History obtained from patient, family, and records. Medical history significant for chronic anemia (baseline hemoglobin of 13 ), alcohol abuse. Patient woke up yesterday morning with sharp epigastric pain going to the back. Abdominal pain getting worse throughout the day. Somewhat worse in the supine position. Bilious emesis without black/bloody stools. No fever, no chills. No chest pain, no SOB. Patient denies inordinate OTC NSAID intake. Transient episodes for some time now which patient attributes to heavy food and EtOH intake. Patient consulted ER for evaluation. IV Protonix and famotidine administered for possible GI bleed on initial CT read. Medical History as above Surgical History : Right forearm surgery Family History : Hypertension Personal/Social history : Non-smoker, alcohol abuse, [employer] employment Admission Exam Per Admitting Provider Physical Exam: GENERAL: Comfortable, pleasant, no respiratory distress SKIN: Pallor, warm HEENT: Pale palpebral conjunctivae, no ptosis, dry buccal mucosa NECK : Supple, no tenderness CHEST : CTA, no tenderness HEART : RRR, no obvious murmurs ABDOMEN: Some distention, epigastric tenderness EXTREMITIES : No LE swelling/tenderness, no other conspicuous deformities noted NEUROLOGIC : Coherent, no facial asymmetry, no other gross focality Principal Dx & Hospital Course #1 = Principal Diagnosis (1) Abdominal pain, acute, epigastric: (2) Abnormal CT of the abdomen: Plan The patient is a 47 yo M presenting with acute epigastric pain x 1 day. Spouse was also sick with a GI illness 24 hours prior, and food borne illness was in the differential. His pain was radiating through to his back so CTA was performed and negative for aortic dissection. He had no hematemesis or black tarry stool suggestive of an acute bleed but was placed on a protonix drip empirically. Lipase was negative. Per initial CT read there was a possible GI bleed present, so he was initially placed on a protonix drip. This was overread as not a bleed the following morning. [facility] gastroenterology was consulted and felt elpidio most likely had an acute gastroenteritis. The results of the CT scan did reveal and abnormally thickened small bowel with associated necrotic lymph nodes consistent with a possible carcinoid syndrome (Clustered mildly enlarged ileocolic lymph nodes, one of which may be necrotic. Although nonspecific, these are suspicious for a neoplastic process. Rosalio spread of carcinoid tumor is within the differential with the possible primary tumor within the mid to distal ileum). The location was unable to be reached by endoscopy or enteroscopy, therefore, outpatient surgical oncology follow-up was recommended for further workup. He did not require antibiotics or blood transfusions during his stay. CBC and BMP remained within normal limits and his symptoms were resolved by the time of discharge. At time of discharge, he was tolerating PO, mentating and ambulating at his baseline and close primary care follow-up was scheduled for him within the next week. He verbalized understanding of the instructions to follow-up with Dr. Caldera office after I touched base with the surgeon. He was given a CD of the images and reports from this admission to take with him and those images were also pushed through the radiology system. Discharge Exam CONSTITUTIONAL: WNWD, vitals as above, generally well-appearing, NAD EYES: normal conjunctivae, no scleral icterus ENT: external ear and nose normal, MMM NECK: trachea midline RESPIRATORY: clear to auscultation bilaterally, no crackles, rales or wheezes, normal respiratory effort CARDIOVASCULAR: regular rate and rhythm, S1 and 2 heard without murmurs, gallops or rubs, no JVD, no peripheral edema CHEST: inspection of chest was normal GASTROINTESTINAL: soft, nontender, ND, no guarding MUSCULOSKELETAL: strength 5/5 throughout, head is normocephalic and atraumatic SKIN: warm and dry NEUROLOGIC: CN 2-12 grossly intact, no sensory deficit, normal cognition, normal speech, no tremor PSYCHIATRIC: alert cooperative and oriented to person, place and time. Updated Medication List Medication Instructions Recorded Confirmed Type No Known Home Medications 07/17/22 07/17/22 History Hospital Stay Data Consultations 07/17/22 07:51 Consult Gastroenterology Routine Diagnostic Imagining Performed 07/17/22 02:36 CT angio abd pelvis wo/w con Urgent CTA chest dissec wo/w con [CT angio chest dissec wo/w con] Urgent Pending Results Patient Have Any Pending Studies at Discharge: No Discharge Instructions Given to Patient (Per Discharging Provider) Mr. Choi, It is not clear what caused your abdominal discomfort. It may have been some type of acute GI illness from food or a virus. However, you were found to have an abnormal thickening of the wall of your small bowel on imaging with associated lymph node enlargement that was concerning for carcinoid syndrome. There is a surgical oncology pharmacist at [facility] in [place], [place] who will help us with working this up. His name is Dr. Ben Florentino. His office will be contacting you for an appointment. You should have a CD with the images from this hospital stay. Please take this with you to the visit with Dr. Florentino. Please follow-up with your primary care provider in the next 1-2 weeks to ensure you are doing well, and also to facilitate getting you to the specialist to help you investigate this abnormality further. It was a pleasure taking care of you! Please call if you have any questions or problems. You can reach a [facility] hospitalist on duty at [facility] 24 hours a day by calling [phone]. Take care of yourself. Nely De Anda, DO [facility] Hospitalist Total Time Total Time Spent Total Time Spent (In Minutes): 60
--- NOTE | 2022-07-18 14:37 | Communication Note ---
Date of Service: July 18, 2022 Case reviewed, discussed w Dr. Holman, Dr. De La Cruz and Dr. De Anda. Recommend OP surgical oncology eval to sample ileocolonic lymph nodes and w/u for malignancy as not easily reached by endoscopy. Dr. De Anda is reaching out to Dr. Florentino in surgery oncology.
== END 2022-07-18 13:23 | disposition home or self-care (01) ==
LOC: EDINP 02:22 → ED 02:22 → SUATTDRO 05:34 → 4W 16:08